=== PATIENT | male | born 1990 | race African-American/Black ===

== ENCOUNTER 2016-08-04 21:53 | Emergency (ER) | payer OTHER ==
[~2016-08-04] VITALS: Ht 182.9 cm; Wt 68.0 kg
[2016-08-04 21:58] VITALS: Ht 182.9 cm; Wt 68.0 kg
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
--- NOTE | 2016-08-04 23:43 | RADRPT ---
PROCEDURE: XR Cervical Spine. CLINICAL INDICATION: Pain in the cervical spine. TECHNIQUE: 4 views of the cervical spine were performed. The images were reviewed on a PACS works tation. COMPARISON: None. FINDINGS: Cervical straightening, which may represent muscular spasm in the setting of pain versus patient pos ition during imaging. Otherwise, the vertebral body alignment, height and osseous mineralization ar e normal. The intervertebral disc spaces are well maintained. There are no abnormal calcifications. The prevertebral soft tissues are normal. No radiopaque foreign bodies are identified. There is no acute fracture or subluxation. IMPRESSION: Cervical straightening, without acute fracture. RPTAT: [facility] Physician Daniel Date Time Electronically viewed and signed by Physician Daniel on 08/04/2016 23:42 RS/
--- NOTE | 2016-08-04 23:44 | RADRPT ---
PROCEDURE: X-ray thoracic spine. CLINICAL INDICATION: Pain in thoracic spine. TECHNIQUE: 3 views thoracic spine. COMPARISON: None. FINDINGS: No acute fracture dislocation. Radiopaque foreign material seen over the left chest on the AP view, only, perhaps in the anterior c hest wall. Otherwise, the tissues unremarkable. IMPRESSION: No acute fracture. RPTAT: [facility] Physician Daniel Date Time Electronically viewed and signed by Whitney Iyer Physician on 08/04/2016 23:43 RS/
[2016-08-05] MEDS ORDERED: IBUP-1542 PO (00:45)
[2016-08-05] MEDS ORDERED: HYDR-906 PO (00:46)
== END 2016-08-05 01:00 | disposition home or self-care (01) ==
LOC: FTE 21:53
DX: S39.92XA Unspecified injury of lower back, initial encounter (principal); S19.9XXA Unspecified injury of neck, initial encounter; X50.0XXA Overexertion from strenuous movement or load, initial encounter; Y92.9 Unspecified place or not applicable
CPT/HCPCS: 72040; 72072; Z7502